=== PATIENT | female | born 1985 | race Caucasian/White ===

== ENCOUNTER 2016-12-29 13:15 | Emergency (ER) | payer SELFPAY ==
[~2016-12-29] VITALS: Ht 162.6 cm; Wt 60.0 kg
[~2016-12-29 13:15] MED LIST: ACET500T98 PO; ALBU18HF IH; ALBU18HF INHALATION; HYDR-3498 PO; NITR-58 PO; PRED15SO PO; UDROBDM PO
[2016-12-29 13:19] VITALS: Ht 162.6 cm; Wt 60.0 kg
[2016-12-29] MEDS ORDERED: IBUPROFEN 600 MG TAB PO ONE (14:00)
[2016-12-29] MEDS ORDERED: ACETAMINOPHEN 325 MG TAB PO ONE (14:00)
[2016-12-29] MEDS ORDERED: LIDOCAINE 1% (MDV) 20 ML INJ SC ONE (14:30)
[2016-12-29] MEDS ORDERED: HYDR-906 PO (14:34)
[2016-12-29] MEDS ORDERED: IBUP-1542 PO (14:34)
--- NOTE | 2016-12-29 14:46 | ERD ---
ER Documentation Chief Complaint Date/Time DATE: 12/29/16 TIME: 14:38 Chief Complaint lac to the right hand; injury today HPI This is a 31-year-old female who presents with a laceration to the third and fourth interdigital webspace of the right hand. Patient accidentally cut herself using a knife while she was preparing lunch 30 mins prior to ED visit. Patient denies any weakness, numbness, tingling sensation. Denies any fever. Medical history is unremarkable and patient had a history of cholecystectomy. Patient is unable to recall her last tetanus shot. ROS All systems reviewed and are negative except as per history of present illness. Medications Home Meds Active Scripts Hydrocodone/Acetaminophen ([place] 5-325 Tablet) 1 Each Tablet, 1 TAB PO Q6H Y for PAIN, #7 TAB Prov:CAROLE SANTACRUZ 12/29/16 Ibuprofen* (Motrin*) 600 Mg Tab, 600 MG PO Q6H Y for PAIN AND OR ELEVATED TEMP, #30 TAB Prov:CAROLE SANTACRUZ 12/29/16 Albuterol Sulfate* (Ventolin HFA*) 18 Gm Hfa.aer.ad, 2 PUFF INHALATION Q6H for WHEEZING, #1 INHALER 0 Refills Prov:ALIDA WILSON PA-C 09/17/15 Prednisolone* (Prelone*) 15 Mg/5 Ml Solution, 5 ML PO DAILY Y for WHEEZING, # 240 BOTTLE 0 Refills Prov:ALIDA WILSON PA-C 09/17/15 Guaifenesin-Dextromethorphan* (Robitussin* DM) 100MG/10MG/5ML Syrup, 10 ML PO Q6H Y for COUGH, #240 ML 0 Refills Prov:ALIDA WILSON PA-C 09/17/15 Acetaminophen (Tylenol) 500 Mg Tab, 500 MG PO Q6, #30 TAB 0 Refills Prov:ALIDA WILSON PA-C 09/17/15 Hydrocodone Bit-Acetaminophen* ([place]*) 5-325 Mg Tab, 1 TAB PO Q4H Y for PAIN, # 15 TAB Prov:PRABHA AUGUSTIN PA-C 09/09/15 Albuterol Sulfate* (Ventolin HFA*) 18 Gm Hfa.aer.ad, 2 PUFF IH Q4H Y for WHEEZING AND RESP DISTRESS, #1 EA Prov:PRABHA AUGUSTIN PA-C 09/09/15 Nitrofurantoin Monohyd Macrocr* (Macrobid*) 100 Mg Capsr, 100 MG PO BID for 7 Days, CAP Prov:PRABHA AUGUSTIN PA-C 09/09/15 Allergies Allergies: Coded Allergies: aspirin (Verified Allergy, Unknown, 09/09/15) PMhx/Soc Medical and Surgical Hx: pt denies Medical Hx, pt denies Surgical Hx Hx Alcohol Use: No Hx Substance Use: No Hx Tobacco Use: No Physical Exam Vitals Vital Signs Date Time Temp Pulse Resp B/P Pulse Ox O2 Delivery O2 Flow Rate FiO2 12/29/16 13:19 97.8 66 18 117/75 98 Physical Exam Physical Exam CONST: Well-developed, well-nourished, in no acute distress. Nontoxic in appearance. HEENT: Atraumatic. Normal conjunctiva. EOM intact. TM intact. External ear is normal. Clear oropharnyx without erythema. No uvular deviation. Moist mucous membranes. Supple neck. No meningismus. No submandibular induration. RESP: Clear to auscultation bilaterally. No wheezing. CARDIO: Regular rate and rhythm, no murmurs. ABD: Soft, non tender, non distended. Normal bowel sounds. No McBurney's point tenderness. No guarding or rigidity. No peritoneal signs. SKIN: Approximately 1.5 cm laceration between the third and fourth interdigital web space. Minimal oozing without any foreign body. BACK: No midline or flank tenderness. EXT: No cyanosis or edema. Distal pulses equal and bilateral. ROM when intact on all fingers. NEURO: Awake and alert, appropriate for age. Results 24 hrs Current Medications Medications (Trade) Dose Ordered Sig/Parmjit Route PRN Reason Start Time Stop Time Status Last Admin Dose Admin Acetaminophen (Tylenol Tab) 650 mg ONCE ONCE PO 12/29/16 14:00 12/29/16 14:00 DC Ibuprofen (Motrin) 600 mg ONCE ONCE PO 12/29/16 14:00 12/29/16 14:01 DC 12/29/16 14:00 Lidocaine (Xylocaine 1% (Mdv) 20 ml) 20 ml ONCE ONCE SC 12/29/16 14:30 12/29/16 14:31 DC Diphtheria/ Tetanus/Acell Pertussis (Adacel) 0.5 ml ONCE ONCE IM* 12/29/16 15:00 12/29/16 15:01 12/29/16 14:44 Procedures/MDM EMERGENCY DEPARTMENT COURSE/MEDICAL DECISION MAKING This is a 31-year-old female who comes to the emergency room secondary to laceration between the third and fourth interdigital webspace. Range of motion is intact without any neuro deficits. Ibuprofen and tetanus booster were given during the ED course. Laceration Repair by me: Anesthesia: 1% lidocaine locally Location: Third and fourth interdigital web space Tendon/Joint/Nerves: No injury Foreign body: None detected after copious irrigation and exploration Technique: 3 simple Interrupted Sutures Complexity: No subcutaneous sutures/mucosal repair/ edge excision Post Closure Length: Approximately 1.5 cm Patient's bleeding was easily controlled in the department and there is no indication of anemia. No evidence of compartment syndrome, neurologic injury, vascular injury, open joint, tendon laceration, or foreign body. Patient is appropriate for outpatient follow up. 48 hour wound check. Scar minimization instructions given. My primary diagnosis is laceration. Secondary diagnosis is right hand pain Differential diagnoses considered but not limited to fracture, tendon rupture, cellulitis, foreign body. Pt is hemodynamically stable upon reassessment. The patient was discharged for outpatient management with a prescription for [place] and ibuprofen. Patient was instructed to return to ED for a 48 hour wound check and in 7 days for suture removal. The patient was also advised to followup with their PMD in 1-2 days and to return to the Emergency Department if there are any new or worsening symptoms. The patient understood and agreed with the diagnosis, treatment and plan. Patient is stable for discharge at this time. Departure Diagnosis: Primary Impression: Laceration of hand, right Encounter type: initial encounter Foreign body presence: without foreign body Qualified Code: S61.411A - Laceration of right hand without foreign body , initial encounter Additional Impression: Hand pain, right Condition: Stable Patient Instructions: Laceration, Hand Referrals: COMMUNITY CLINICS YOU HAVE RECEIVED A MEDICAL SCREENING EXAM AND THE RESULTS INDICATE THAT YOU DO NOT HAVE A CONDITION THAT REQUIRES URGENT TREATMENT IN THE EMERGENCY DEPARTMENT. FURTHER EVALUATION AND TREATMENT OF YOUR CONDITION CAN WAIT UNTIL YOU ARE SEEN IN YOUR DOCTORS OFFICE WITHIN THE NEXT 1-2 DAYS. IT IS YOUR RESPONSIBILITY TO MAKE AN APPOINTMENT FOR FOLOW-UP CARE. IF YOU HAVE A PRIMARY DOCTOR --you should call your primary doctor and schedule an appointment IF YOU DO NOT HAVE A PRIMARY DOCTOR YOU CAN CALL OUR PHYSICIAN REFERRAL HOTLINE AT IF YOU CAN NOT AFFORD TO SEE A PHYSICIAN YOU CAN CHOSE FROM THE FOLLOWING [facility] [address] [facility] [address] [facility] [address] [facility] [address] [facility] [address] [facility]. [facility] [address] [facility]. [facility] YOU HAVE RECEIVED A MEDICAL SCREENING EXAM AND THE RESULTS INDICATE THAT YOU DO NOT HAVE A CONDITION THAT REQUIRES URGENT TREATMENT IN THE EMERGENCY DEPARTMENT. FURTHER EVALUATION AND TREATMENT OF YOUR CONDITION CAN WAIT UNTIL YOU ARE SEEN IN YOUR DOCTORS OFFICE WITHIN THE NEXT 1-2 DAYS. IT IS YOUR RESPONSIBILITY TO MAKE AN APPOINTMENT FOR FOLOW-UP CARE. IF YOU HAVE A PRIMARY DOCTOR --you should call your primary doctor and schedule and appointment IF YOU DO NOT HAVE A PRIMARY DOCTOR YOU CAN CALL OUR PHYSICIAN REFERRAL HOTLINE AT . IF YOU CAN NOT AFFORD TO SEE A PHYSICIAN YOU CAN CHOSE FROM THE FOLLOWING [facility] [address] [place] [address] [facility] [address] [place] [address] [facility] [address] [place] [address] Additional Instructions: Follow up in 2 days in your clinic for wound check. Follow up with your physician to remove the stitches:For Face wounds 5-7 days.For Elsewhere on the body 7-10 days. Call your primary care doctor tomorrow for an appointment during the next 1-2 days. Return to the emergency department immediately should you have any new or worsening symptoms. Take all medications as directed. CAROLE SANTACRUZ Dec 29, 2016 14:46
[2016-12-29] MEDS ORDERED: DIPHTH/TET/ACEL PERTUSS (ADULT) 0.5 ML VIAL IM* ONE (15:00)
== END 2016-12-29 15:22 | disposition home or self-care (01) ==
LOC: FTE 13:15
DX: S61.411A Laceration without foreign body of right hand, initial encounter (principal); W26.0XXA Contact with knife, initial encounter; Y92.9 Unspecified place or not applicable; Z23 Encounter for immunization
CPT/HCPCS: 90471; 90715

== ENCOUNTER 2016-12-31 12:19 | Emergency (ER) | payer SELFPAY ==
[~2016-12-31] VITALS: Wt 59.5 kg
[~2016-12-31 12:19] MED LIST changes: +HYDR-906 PO; +IBUP-1542 PO
--- NOTE | 2016-12-31 13:39 | ERD ---
ER Documentation Chief Complaint Date/Time DATE: 12/31/16 TIME: 13:38 Chief Complaint right hand wound check HPI Patient is a 31-year-old female with no medical problems who presents for a wound check. The patient had a laceration between the third and fourth fingers of the left hand from cutting avocados 2 days ago. The patient had 3 stitches placed in the emergency department. The patient had subjective fever but has had no redness. There is no pus from the wound. The patient tried Advil. There is no primary doctor at this time. She has full range of motion. ROS All systems reviewed and are negative except as per history of present illness. Medications Home Meds Active Scripts Hydrocodone/Acetaminophen ([place] 5-325 Tablet) 1 Each Tablet, 1 TAB PO Q6H Y for PAIN, #7 TAB Prov:CAROLE SANTACRUZ 12/29/16 Ibuprofen* (Motrin*) 600 Mg Tab, 600 MG PO Q6H Y for PAIN AND OR ELEVATED TEMP, #30 TAB Prov:CAROLE SANTACRUZ 12/29/16 Albuterol Sulfate* (Ventolin HFA*) 18 Gm Hfa.aer.ad, 2 PUFF INHALATION Q6H for WHEEZING, #1 INHALER 0 Refills Prov:ALIDA WILSON PA-C 09/17/15 Prednisolone* (Prelone*) 15 Mg/5 Ml Solution, 5 ML PO DAILY Y for WHEEZING, # 240 BOTTLE 0 Refills Prov:ALIDA WILSON PA-C 09/17/15 Guaifenesin-Dextromethorphan* (Robitussin* DM) 100MG/10MG/5ML Syrup, 10 ML PO Q6H Y for COUGH, #240 ML 0 Refills Prov:ALIDA WILSON PA-C 09/17/15 Acetaminophen (Tylenol) 500 Mg Tab, 500 MG PO Q6, #30 TAB 0 Refills Prov:ALIDA WILSON PA-C 09/17/15 Hydrocodone Bit-Acetaminophen* ([place]*) 5-325 Mg Tab, 1 TAB PO Q4H Y for PAIN, # 15 TAB Prov:PRABHA AUGUSTIN PA-C 09/09/15 Albuterol Sulfate* (Ventolin HFA*) 18 Gm Hfa.aer.ad, 2 PUFF IH Q4H Y for WHEEZING AND RESP DISTRESS, #1 EA Prov:PRABHA AUGUSTIN PA-C 09/09/15 Nitrofurantoin Monohyd Macrocr* (Macrobid*) 100 Mg Capsr, 100 MG PO BID for 7 Days, CAP Prov:PRABHA AUGUSTIN PA-C 09/09/15 Allergies Allergies: Coded Allergies: aspirin (Verified Allergy, Unknown, 09/09/15) PMhx/Soc Medical and Surgical Hx: pt denies Medical Hx Hx Alcohol Use: No Hx Substance Use: No Hx Tobacco Use: No FmHx Family History: diabetes Physical Exam Vitals Vital Signs Date Time Temp Pulse Resp B/P Pulse Ox O2 Delivery O2 Flow Rate FiO2 12/31/16 12:27 98.8 89 20 110/60 99 Physical Exam Const: No acute distress Head: Atraumatic Eyes: Normal Conjunctiva ENT: Normal External Ears, Nose and Mouth. Neck: Full range of motion..~ No meningismus. Resp: Clear to auscultation bilaterally Cardio: Regular rate and rhythm, no murmurs Abd: Soft, non tender, non distended. Normal bowel sounds Skin: Laceration between the left fourth and third finger of the left hand is clean, dry, and intact Back: No midline or flank tenderness Ext: No cyanosis, or edema Neur: Awake and alert Psych: Normal Mood and Affect Procedures/MDM Wound shows no evidence of infection, foreign body, neurologic injury, vascular injury, open joint or tendon laceration. Patient appropriate for outpatient follow up. Departure Diagnosis: Primary Impression: Suture check Condition: Fair Patient Instructions: Wound Check, Lac F/U (No Infection) Referrals: [facility] YOU HAVE RECEIVED A MEDICAL SCREENING EXAM AND THE RESULTS INDICATE THAT YOU DO NOT HAVE A CONDITION THAT REQUIRES URGENT TREATMENT IN THE EMERGENCY DEPARTMENT. FURTHER EVALUATION AND TREATMENT OF YOUR CONDITION CAN WAIT UNTIL YOU ARE SEEN IN YOUR DOCTORS OFFICE WITHIN THE NEXT 1-2 DAYS. IT IS YOUR RESPONSIBILITY TO MAKE AN APPOINTMENT FOR FOLOW-UP CARE. IF YOU HAVE A PRIMARY DOCTOR --you should call your primary doctor and schedule an appointment IF YOU DO NOT HAVE A PRIMARY DOCTOR YOU CAN CALL OUR PHYSICIAN REFERRAL HOTLINE AT IF YOU CAN NOT AFFORD TO SEE A PHYSICIAN YOU CAN CHOSE FROM THE FOLLOWING [facility] [address] [facility]. [facility] [address] [facility]. [facility] [address] [facility] [facility] [address] [facility]. [facility] [address] [facility]. [facility] [address] Additional Instructions: Call your primary care doctor TOMORROW for an appointment during the next 1 WEEK.Tell the pathology secretary that you were referred from this facility.See the doctor sooner or return here if your condition worsens before your appointment time. ALVIN BROWN MD Dec 31, 2016 13:39
== END 2016-12-31 13:50 | disposition home or self-care (01) ==
LOC: FTE 12:19
DX: Z48.01 Encounter for change or removal of surgical wound dressing (principal)
CPT/HCPCS: 99281

== ENCOUNTER 2017-02-16 20:50 | Inpatient (IN) | payer MEDICAID ==
[~2017-02-16] VITALS: Ht 160 cm; Wt 59.0 kg
[2017-02-16] MEDS ORDERED: SOD CHLORIDE 0.9% 1,000 ML IV STA (23:27)
[2017-02-16 23:50] LABS: ADD SCAN DIFF NO
[2017-02-16 23:53] LABS: BASOPHIL # 0.1 10^3/ul (0.0-0.1); BASOPHILS % 0.3 % (0.0-2.0); EOSINOPHILS # 0.7 10^3/ul (0.0-0.5); EOSINOPHILS % 4.8 % (0.0-7.0); HEMATOCRIT 39.2 % (37.0-47.0); HEMOGLOBIN 12.6 g/dl (12.0-16.0); LYMPHOCYTES % 13.7 % (15.0-51.0); MEAN CORPUSCULAR HEMOGLOBIN 28.3 pg (29.0-33.0); MEAN CORPUSCULAR HGB CONC 32.1 g/dl (32.0-37.0); MEAN CORPUSCULAR VOLUME 87.9 fl (82.0-101.0); MEAN PLATELET VOLUME 9.1 fl (7.4-10.4); MONOCYTE # 1.3 10^3/ul (0.3-0.9); MONOCYTES % 8.6 % (0.0-11.0); NEUTROPHIL # 10.6 10^3/ul (1.6-7.5); NEUTROPHILS % 72.3 % (39.0-77.0); PLATELET COUNT 334 10^3/UL (140-415); RED BLOOD COUNT 4.46 10^6/ul (4.20-5.40); RED CELL DISTRIBUTION WIDTH 13.8 % (11.5-14.5); WHITE BLOOD COUNT 14.7 10^3/ul (4.8-10.8)
[2017-02-17 00:09] LABS: INR 0.93; PROTIME 12.5 Sec (12.2-14.2)
[2017-02-17 00:10] LABS: PARTIAL THROMBOPLASTIN TIME 28.4 Sec (25.0-35.0)
[2017-02-17 00:12] LABS: ALBUMIN 4.2 g/dl (3.3-4.9); ALBUMIN/GLOBULIN RATIO 1.31; BILIRUBIN,INDIRECT 0.2 mg/dl (0-1.1); BILIRUBIN,TOTAL 0.2 mg/dl (0.2-1.3); CALCIUM 9.3 mg/dl (8.4-10.2); CREATININE 0.68 mg/dl (0.44-1.00); TOTAL PROTEIN 7.4 g/dl (6.1-8.1)
[2017-02-17 00:30] LABS: ADD UMIC YES; URINE BILIRUBIN (Dip) NEGATIVE (NEGATIVE); URINE BLOOD (Dip) 2+ (NEGATIVE); URINE COLOR LT. YELLOW (YELLOW); URINE GLUCOSE (Dip) NEGATIVE (NEGATIVE); URINE KETONES (Dip) TRACE (NEGATIVE); URINE LEUKOCYTE ESTERASE (Dip) 2+ (NEGATIVE); URINE NITRITE (Dip) NEGATIVE (NEGATIVE); URINE TOTAL PROTEIN (Dip) 1+ (NEGATIVE); URINE UROBILINOGEN (Dip) 0.2 E.U./dL (0.1-1.0)
[2017-02-17 00:48] LABS: BACTERIA,URINE MODERATE; SQUAMOUS EPITHELIAL CELL,UR MANY; URINE RBCS >50 /HPF (0)
[2017-02-17] MEDS ORDERED: morphine 2 MG INJ IV ONE (01:00)
[2017-02-17] MEDS ORDERED: PIPER-TAZO 3.375 GM IV (PMX) 100 ML IVPB ONE (01:30)
[2017-02-17] MEDS ORDERED: IBUPROFEN 600 MG TAB PO ONE (05:30)
[2017-02-17 06:09] VITALS: TEMP 99.6
[2017-02-17] MEDS ORDERED: NACL 0.9% 3 ML SYG IV SCH (07:30)
[2017-02-17] MEDS ORDERED: ONDANSETRON 4 MG INJ IV PRN (07:30)
[2017-02-17] MEDS ORDERED: VANCOMYCIN IV PER PHARMACY XX SCH (07:30)
[2017-02-17] MEDS ORDERED: morphine 4 MG/ML VIAL IV PRN ×2 (07:30→19:30)
[2017-02-17] MEDS ORDERED: ACETAMINOPHEN 325 MG TAB PO PRN (07:30)
--- NOTE | 2017-02-17 08:14 | HP ---
DATE OF ADMISSION: 02/16/2017 TIME SEEN: 6 a.m. CHIEF COMPLAINT: Right buttock infection and pain, as well as fever. HISTORY OF PRESENT ILLNESS: The patient is a 31-year-old female with a history of asthma who presen monty to the emergency department with the above-stated chief complaint. She stated that she was prob ably bitten by a spider 3 days ago on her right buttock and since then she had been noticing swellin g and pain. She also reported a subjective fever. When she presented to the ER her blood pressure was 133/79, heart rate 96, respiratory rate 18, temp erature 99.5, oxygen saturation 98% on room air. An I and D on her right eye buttock was done by e ER physician. She also received normal Zosyn and was given pain medications while she was in the ER. Currently she is awaiting admission. Currently the patient is also complaining of a diffuse he adache, for which she stated the morphine that she was given has effective. Note that the pat iemagda was recently diagnosed with a UTI and has been taking Macrobid and a urinalysis here in the ER is consistent with a UTI. REVIEW OF SYSTEMS: A 12-point review of systems was performed and negative except as mentioned in t he HPI. PAST MEDICAL HISTORY: As per HPI. PAST SURGICAL HISTORY: Cholecystectomy. SOCIAL HISTORY: Denied a history of tobacco, alcohol or illicit drug use. ALLERGIES: ASPIRIN. HOME MEDICATIONS: 1. Albuterol. 2. Ibuprofen. 3. Tylenol. 4. Robitussin. 5. Has been taking Macrobid for a recently diagnosed UTI. PHYSICAL EXAMINATION: VITAL SIGNS: Stable. GENERAL: The patient looks slightly uncomfortable because of pain. She is, however, answering ques tions appropriately. HEENT: No obvious head deformity. Pupils are reactive to light. Extraocular muscles are intact. CARDIOVASCULAR: Regular rate and rhythm. No extra sounds. LUNGS: Clear. ABDOMEN: Soft, nontender, nondistended. Positive bowel sounds. EXTREMITIES: No edema. There is a dressing over her right buttock area, status post incision and drainage. There is surrou nding cellulitis. The area is tender to touch. LABORATORY: WBC is almost 15,000. Otherwise CBC and CMP are within acceptable range. Urinalysis is consistent with a UTI. IMPRESSION: 1. Right buttock abscess, status post incision and drainage. 2. Sepsis, as evidenced by leukocytosis and tachycardia, secondary to above, as well as possibly fr om her urinary tract infection. 3. Urinary tract infection. 4. History of asthma. PLAN: She will be placed on broad-spectrum antibiotics which addresses both the infection on her bu ttock, as well as her UTI. Will follow up on culture results. Will provide pain medication as need ed. Will place an infectious disease consult. Will consider obtaining imaging. Currently, there i s no sign of asthma exacerbation, but she will receive breathing treatments and also if needed stero id, based on her clinical course. Further workup and management as per clinical course. Dictated By: KORIN CHÁVEZ/EVER Conf#: [id number] DID#: [id number]
[2017-02-17] MEDS: SOD CHLORIDE 0.9% 1,000 ML IV SCH ×2 (08:49→15:21)
[2017-02-17 09:21] VITALS: BP 102/57; PULSE 67; RESP 18; Ht 160 cm; Wt 59.0 kg
[2017-02-17] MEDS ORDERED: VANCOMYCIN 1.25 GM in SOD CHLORIDE 0.9% 250 ML IVPB SCH (10:00)
[2017-02-17] MEDS: CEFEPIME 1GM/50 ML (PMX) 50 ML IVPB SCH ×2 (10:04→21:26)
[2017-02-17] MEDS: LORATADINE 10 MG TAB PO SCH (15:24)
[2017-02-17] MEDS ORDERED: morphine 2 MG INJ IV PRN (17:00)
[2017-02-17] MEDS: VANCOMYCIN 1 GM in NS 250 ML IVPB SCH (17:31)
[2017-02-17] MEDS: FAMOTIDINE 20 MG TAB PO SCH (17:31)
[2017-02-17] MEDS: HYDROCODONE/APAP (5/325) TAB PO PRN (17:42)
--- NOTE | 2017-02-17 18:53 | PN ---
DATE: 02/17/2017 SUBJECTIVE: The patient still with some right buttock pain, but less in severity. Denies any prese nt fevers. OBJECTIVE: VITAL SIGNS: Stable. GENERAL: The patient is lying in bed, answering questions appropriately. No acute distress. HEENT: Pupils equal, round, react to light. Extraocular muscles intact. NECK: Supple. No thyromegaly. LUNGS: Clear to auscultation bilaterally. CARDIOVASCULAR: S1, S2 heard. No rubs or gallops. ABDOMEN: Soft, nontender, nondistended. Normal bowel sounds. No rebound or guarding. MUSCULOSKELETAL: Again, her right buttock area has a bandage covering with packing in place on the incisional area. Mild redness around the incision site, but no significant pus or blood leaking thr ough. Otherwise, no lower extremity edema bilaterally. NEUROLOGIC: No focal deficits. LABORATORY DATA: There is no new CBC or basic metabolic panel from this morning. UA shows 2+ leuko cyte esterase positive, moderate amount of bacteria. ASSESSMENT AND PLAN: A 31-year-old female coming in with right buttock infection and pain as well a s urinary tract infection and fever status post incision and drainage. 1. Right buttock pain secondary to right buttock abscess, again status post incision and drainage. Continue broad spectrum antibiotics. Follow up final culture results. Tylenol p.r.n. pain and fev ers, IV fluids, pain control medications. 2. Urinary tract infection. Again, follow up final culture results. Continue broad spectrum antib iotics. 3. History of asthma. Add DuoNeb p.r.n. No present issues. 4. Gastrointestinal prophylaxis. Add H2 leland. 5. Deep venous thrombosis prophylaxis. Ambulation. Dictated By: ELY DIAZ Conf#: [id number] DID#: [id number] CC: KORIN MYERS MD;*End*
[2017-02-17] MEDS: FLUTICASONE 0.05% 16 GM NAS SPRAY NASAL SCH ×2 (19:51→19:52)
[2017-02-17 20:42] VITALS: BP 113/66; RESP 16
[2017-02-18 00:29] VITALS: BP 98/57; PULSE 72; RESP 20
[2017-02-18] MEDS: SOD CHLORIDE 0.9% 1,000 ML IV SCH ×2 (01:03→07:21)
[2017-02-18] MEDS: VANCOMYCIN 1 GM in NS 250 ML IVPB SCH ×2 (01:05→11:30)
[2017-02-18 04:50] LABS: ADD SCAN DIFF NO
[2017-02-18 04:56] LABS: BASOPHIL # 0.1 10^3/ul (0.0-0.1); BASOPHILS % 0.5 % (0.0-2.0); EOSINOPHILS # 0.9 10^3/ul (0.0-0.5); EOSINOPHILS % 9.3 % (0.0-7.0); HEMATOCRIT 33.9 % (37.0-47.0); HEMOGLOBIN 10.7 g/dl (12.0-16.0); LYMPHOCYTES # 2.3 10^3/ul (0.8-2.9); LYMPHOCYTES % 23.2 % (15.0-51.0); MEAN CORPUSCULAR HEMOGLOBIN 27.6 pg (29.0-33.0); MEAN CORPUSCULAR HGB CONC 31.6 g/dl (32.0-37.0); MEAN CORPUSCULAR VOLUME 87.6 fl (82.0-101.0); MEAN PLATELET VOLUME 9.2 fl (7.4-10.4); MONOCYTE # 0.8 10^3/ul (0.3-0.9); MONOCYTES % 7.7 % (0.0-11.0); NEUTROPHIL # 5.9 10^3/ul (1.6-7.5); NEUTROPHILS % 59.1 % (39.0-77.0); PLATELET COUNT 302 10^3/UL (140-415); RED BLOOD COUNT 3.87 10^6/ul (4.20-5.40); RED CELL DISTRIBUTION WIDTH 13.8 % (11.5-14.5); WHITE BLOOD COUNT 9.9 10^3/ul (4.8-10.8)
[2017-02-18 05:47] LABS: ALBUMIN 2.8 g/dl (3.3-4.9); ALBUMIN/GLOBULIN RATIO 0.96; BILIRUBIN,INDIRECT 0.2 mg/dl (0-1.1); BILIRUBIN,TOTAL 0.2 mg/dl (0.2-1.3); CALCIUM 8.1 mg/dl (8.4-10.2); CREATININE 0.59 mg/dl (0.44-1.00); MAGNESIUM 1.9 mg/dl (1.7-2.5); PHOSPHORUS 3.5 mg/dl (2.5-4.9); POTASSIUM 3.6 mmol/L (3.5-5.1); TOTAL PROTEIN 5.7 g/dl (6.1-8.1)
[2017-02-18] MEDS: FAMOTIDINE 20 MG TAB PO SCH (08:21)
[2017-02-18] MEDS: CEFEPIME 1GM/50 ML (PMX) 50 ML IVPB SCH (08:21)
[2017-02-18] MEDS: FLUTICASONE 0.05% 16 GM NAS SPRAY NASAL SCH (08:22)
[2017-02-18] MEDS: LORATADINE 10 MG TAB PO SCH (08:22)
[2017-02-18] MEDS: HYDROCODONE/APAP (5/325) TAB PO PRN (08:31)
[2017-02-18 08:39] VITALS: BP 118/74; RESP 12
--- NOTE | 2017-02-18 14:01 | PDOCDIS ---
Discharge Instructions CONDITION Patient Condition: Stable HOME CARE INSTRUCTIONS: Diet Instructions: Regular ACTIVITY: Activity Restrictions: Slowly Increase Activity FOLLOW UP/APPOINTMENTS Appointments Please see your doctor in the clinic in 1 week, and take your medications as prescribed. ELY STAHL February 18, 2017 14:01
[2017-02-18] MEDS ORDERED: FLUT16SP17 NASAL (14:03)
[2017-02-18] MEDS ORDERED: CEPH500C PO (14:03)
[2017-02-18] MEDS ORDERED: VANCOMYCIN 1.25 GM in SOD CHLORIDE 0.9% 250 ML IVPB SCH (18:00)
--- NOTE | 2017-02-18 19:00 | DS ---
DATE OF ADMISSION: 02/17/2017 DATE OF DISCHARGE: 02/18/2017 A 31-year-old female originally admitted on 02/17/2017, being discharged home on 02/18/2017. HOSPITAL COURSE: The patient came in with right buttock pain. She was found with an infection. Th ere was an abscess actually, that she had incision and drainage procedure performed. The wound was p acked. She was placed on antibiotics as well. Over the course of her hospital stay, her right butt ock pain symptoms improved. She had less redness and swelling. Her leukocytosis resolved. She had no fevers. She was given pain control medications as well and after getting dressing changes and p acking changes, given her improved lab results and vital signs she will be discharged home today in improved condition. The patient was also treated for UTI as well. DISCHARGE MEDICATIONS: She will be sent with: 1. Keflex 500 mg p.o. q. 6 hours for 7 days. 2. Flonase nasal spray b.i.d. 3. She will continue Tylenol 500 mg p.o. q 6 hours. 4. Ventolin 2 puffs inhaled q.4h. p.r.n. 5. Guaifenesin q.6h. p.r.n. 6. [place] 5/325 one tab p.o. q.6h. p.r.n. 7. Prednisolone 5 mL p.o. daily p.r.n. wheezing. She will need follow up with primary care doctor in the clinic in the next 1 to 2 weeks. FINAL DIAGNOSES: 1. Right buttock abscess status post incision and drainage, possibly secondary to a spider bite, un clear, with mild cellulitis now improved after incision and drainage. 2. Urinary tract infection, positive for lactobacillus, now on antibiotics. 3. History of asthma. Time spent with patient 35 minutes. Dictated By: ELY DIAZ Conf#: [id number] DID#: [id number]
[2017-02-19] MEDS ORDERED: SULF1TAB31 PO (11:09)
== END 2017-02-18 15:30 | disposition home or self-care (01) | DRG 872 ==
LOC: E/R 20:50 → MS1 02-17 08:19
PROVIDERS: ADMIT Internal Medicine; ATTEND Internal Medicine
DX: A41.9 Sepsis, unspecified organism (principal); N39.0 Urinary tract infection, site not specified; L02.31 Cutaneous abscess of buttock; L03.317 Cellulitis of buttock; Z87.09 Personal history of other diseases of the respiratory system
CPT/HCPCS: 80053; 80202; 81001; 81003; 83690; 83735; 84100; 85025; 85610; 85730; 87040; 87086; J0692; J2270; J2543; J3370; J7030; J7050

== ENCOUNTER 2017-02-19 09:51 | Emergency (ER) | payer MEDICAID ==
[~2017-02-19] VITALS: Ht 160 cm; Wt 60.0 kg
[~2017-02-19 09:51] MED LIST changes: +CEPH500C PO; +FLUT16SP17 NASAL; -NITR-58 PO
[2017-02-19 09:56] VITALS: Ht 160 cm; Wt 60.0 kg
[2017-02-19] MEDS ORDERED: SULF1TAB31 PO (11:09)
--- NOTE | 2017-02-19 12:38 | ERD ---
ER Documentation Chief Complaint Date/Time DATE: 02/19/17 TIME: 12:31 Chief Complaint wound check HPI This is a 31-year-old female presenting to the emergency department with abscess and cellulitis of her right buttock for 5 days. Patient has been evaluated at this facility on Friday, received an incision and drainage and was admitted for broad-spectrum IV antibiotics for two days and released yesterday. Patient was discharged with Keflex and she just started the medication within the past day. Patient states that the abscess and cellulitis has improved significantly however today she has noted a lot of purulence. Patient states the pain is 7 out of 10 but appropriate for her condition and has not worsened pain. She denies any fevers. She states that she is compliant with her medication. ROS All systems reviewed and are negative except as per history of present illness. Medications Home Meds Active Scripts Sulfamethoxazole/Trimethoprim* (Bactrim Ds* Tablet) 1 Each Tablet, 1 TAB PO BID , #10 TAB Prov:ROCK MCFARLANE PA-C 02/19/17 Cephalexin* (Cephalexin*) 500 Mg Capsule, 500 MG PO Q6 for 7 Days, #28 CAP Prov:ELY STAHL S. 02/18/17 Fluticasone Propionate* (Fluticasone Propionate* Nasal) 50 Mcg/West - 16 Gm [place].susp, 1 SPRAY NASAL BID, #60 2 Refills Prov:ELY STAHL S. 02/18/17 Hydrocodone/Acetaminophen ([place] 5-325 Tablet) 1 Each Tablet, 1 TAB PO Q6H Y for PAIN, #7 TAB Prov:CAROLE SANTACRUZ 12/29/16 Ibuprofen* (Motrin*) 600 Mg Tab, 600 MG PO Q6H Y for PAIN AND OR ELEVATED TEMP, #30 TAB Prov:CAROLE SANTACRUZ 12/29/16 Albuterol Sulfate* (Ventolin HFA*) 18 Gm Hfa.aer.ad, 2 PUFF INHALATION Q6H for WHEEZING, #1 INHALER 0 Refills Prov:ALIDA WILSON PA-C 09/17/15 Prednisolone* (Prelone*) 15 Mg/5 Ml Solution, 5 ML PO DAILY Y for WHEEZING, # 240 BOTTLE 0 Refills Prov:ALIDA WILSON PA-C 09/17/15 Guaifenesin-Dextromethorphan* (Robitussin* DM) 100MG/10MG/5ML Syrup, 10 ML PO Q6H Y for COUGH, #240 ML 0 Refills Prov:ALIDA WILSON PA-C 09/17/15 Acetaminophen (Tylenol) 500 Mg Tab, 500 MG PO Q6, #30 TAB 0 Refills Prov:ALIDA WILSON PA-C 09/17/15 Hydrocodone Bit-Acetaminophen* ([place]*) 5-325 Mg Tab, 1 TAB PO Q4H Y for PAIN, # 15 TAB Prov:PRABHA AUGUSTIN PA-C 09/09/15 Albuterol Sulfate* (Ventolin HFA*) 18 Gm Hfa.aer.ad, 2 PUFF IH Q4H Y for WHEEZING AND RESP DISTRESS, #1 EA Prov:PRABHA AUGUSTIN PA-C 09/09/15 Discontinued Scripts Nitrofurantoin Monohyd Macrocr* (Macrobid*) 100 Mg Capsr, 100 MG PO BID for 7 Days, CAP Prov:PRABHA AUGUSTIN PA-C 09/09/15 Allergies Allergies: Coded Allergies: aspirin (Verified Allergy, Unknown, 09/09/15) PMhx/Soc History of Surgery: Yes ( x1) Anesthesia Reaction: No Hx Neurological Disorder: No Hx Respiratory Disorders: Yes (asthma) Hx Cardiac Disorders: No Hx Psychiatric Problems: No Hx Miscellaneous Medical Probl: No Hx Alcohol Use: No Hx Substance Use: No Hx Tobacco Use: No Physical Exam Vitals Vital Signs Date Time Temp Pulse Resp B/P Pulse Ox O2 Delivery O2 Flow Rate FiO2 02/19/17 09:56 98.4 77 18 124/82 99 Physical Exam General: WD/WN, in no apparent distress, non-toxic appearing HENT: NC/AT Eyes: Conjunctiva normal Neck: Supple Pulm: Clear to auscultation, normal labored breathing; no wheezing/rales/ rhonchi heard CV: Good capillary refill GI: Non-distended, no guarding Back: No masses Ext: No clubbing, cyanosis, or edema Neuro: Moves on all fours Skin: 2cm diameter incision with purulence and surrounding patch of erythema, warmth Psych: Normal mood Procedures/MDM This is a 31-year-old female presenting to the emergency department with abscess and cellulitis of her right buttock who was recently admitted 3 days ago for broad-spectrum IV antibiotics and released yesterday. Patient had an incision and drainage of the abscess on Friday.She was discharged with Keflex. Patient states that the abscess and cellulitis has improved significantly however today she has noted a lot of purulence. There was no evidence of lymphangitis, osteomyelitis, bacteremia. Patient appears well with stable vital signs. In the ED, I have irrigated the incision sites with copious amount of normal saline to flush out the purulence. I have packed it with iodoform and using sterile gauze and Tegaderm. Patient is stable for discharge to follow-up in 2 days at this facility for another wound check. Discussed to continue Keflex as directed by other physician, I have added Bactrim DS to cover for possible MRSA. Stable for discharge for home with precautions to return to the emergency department for any worsening sinus symptoms. She understands and agrees with this plan Departure Diagnosis: Primary Impression: Encounter for wound re-check Additional Impression: Abscess of cellulitis of buttock Condition: Stable Patient Instructions: Abscess Drainage, Wound Packing Additional Instructions: Follow up in 2 days in your clinic for wound check. Return to this facility if you are not improving as expected. Take all medicines as directed. ROCK MCFARLANE PA-C February 19, 2017 12:38
== END 2017-02-19 11:36 | disposition home or self-care (01) ==
LOC: FTE 09:51
DX: Z48.01 Encounter for change or removal of surgical wound dressing (principal); L02.31 Cutaneous abscess of buttock; L03.317 Cellulitis of buttock; J45.909 Unspecified asthma, uncomplicated
CPT/HCPCS: 99283

== ENCOUNTER 2017-02-21 14:18 | Emergency (ER) | payer MEDICAID ==
[~2017-02-21] VITALS: Wt 59.0 kg
[~2017-02-21 14:18] MED LIST changes: +SULF1TAB31 PO
--- NOTE | 2017-02-21 14:49 | ERD ---
ER Documentation Chief Complaint Date/Time DATE: 02/21/17 TIME: 14:48 Chief Complaint WOUND CHECK ON ABCESS I&D HPI 31 yo female comes to the ER for a right buttock abscess incision and drainage wound check from about 5 days ago. The wound was rechecked and repacked 2 days ago. She states that the pain is getting better. No fever, nausea or vomiting. ROS All systems reviewed and are negative except as per history of present illness. Medications Home Meds Active Scripts Sulfamethoxazole/Trimethoprim* (Bactrim Ds* Tablet) 1 Each Tablet, 1 TAB PO BID , #10 TAB Prov:ROCK MCFARLANE PA-C 02/19/17 Cephalexin* (Cephalexin*) 500 Mg Capsule, 500 MG PO Q6 for 7 Days, #28 CAP Prov:ELY STAHL S. 02/18/17 Fluticasone Propionate* (Fluticasone Propionate* Nasal) 50 Mcg/[place] - 16 Gm [place].susp, 1 SPRAY NASAL BID, #60 2 Refills Prov:ELY STAHL S. 02/18/17 Hydrocodone/Acetaminophen ([place] 5-325 Tablet) 1 Each Tablet, 1 TAB PO Q6H Y for PAIN, #7 TAB Prov:CAROLE SANTACRUZ 12/29/16 Ibuprofen* (Motrin*) 600 Mg Tab, 600 MG PO Q6H Y for PAIN AND OR ELEVATED TEMP, #30 TAB Prov:CAROLE SANTACRUZ 12/29/16 Albuterol Sulfate* (Ventolin HFA*) 18 Gm Hfa.aer.ad, 2 PUFF INHALATION Q6H for WHEEZING, #1 INHALER 0 Refills Prov:ALIDA WILSON PA-C 09/17/15 Prednisolone* (Prelone*) 15 Mg/5 Ml Solution, 5 ML PO DAILY Y for WHEEZING, # 240 BOTTLE 0 Refills Prov:ALIDA WILSON PA-C 09/17/15 Guaifenesin-Dextromethorphan* (Robitussin* DM) 100MG/10MG/5ML Syrup, 10 ML PO Q6H Y for COUGH, #240 ML 0 Refills Prov:ALIDA WILSON PA-C 09/17/15 Acetaminophen (Tylenol) 500 Mg Tab, 500 MG PO Q6, #30 TAB 0 Refills Prov:ALIDA WILSON PA-C 09/17/15 Hydrocodone Bit-Acetaminophen* ([place]*) 5-325 Mg Tab, 1 TAB PO Q4H Y for PAIN, # 15 TAB Prov:PRABHA AUGUSTIN PA-C 09/09/15 Albuterol Sulfate* (Ventolin HFA*) 18 Gm Hfa.aer.ad, 2 PUFF IH Q4H Y for WHEEZING AND RESP DISTRESS, #1 EA Prov:PRABHA AUGUSTIN PA-C 09/09/15 Discontinued Scripts Nitrofurantoin Monohyd Macrocr* (Macrobid*) 100 Mg Capsr, 100 MG PO BID for 7 Days, CAP Prov:PARBHA AUGUSTIN PA-C 09/09/15 Allergies Allergies: Coded Allergies: aspirin (Verified Allergy, Unknown, 09/09/15) PMhx/Soc History of Surgery: Yes ( x1) Anesthesia Reaction: No Hx Neurological Disorder: No Hx Respiratory Disorders: Yes (asthma) Hx Cardiac Disorders: No Hx Psychiatric Problems: No Hx Miscellaneous Medical Probl: No Hx Alcohol Use: No Hx Substance Use: No Hx Tobacco Use: No Smoking Status: Never smoker Physical Exam Vitals Vital Signs Date Time Temp Pulse Resp B/P Pulse Ox O2 Delivery O2 Flow Rate FiO2 02/21/17 14:22 99.0 68 17 121/64 100 Physical Exam General: Well-developed, well-nourished. The patient appears in no acute distress. HEENT: Head is normocephalic, atraumatic. No scleral icterus. Neck: Supple. Nontender. Lungs: Clear to auscultation. Normal air movement. Heart: Regular rate and rhythm. S1 and S2 are normal. No murmurs, gallops, or rubs. Abdomen: Nondistended. Extremities: No clubbing or cyanosis. Moving extremities x 4. No weakness. Neurologic: Alert and oriented 3. No focal deficits. Normal speech and gait. Skin: 1 cm incision in the right mid buttock, areas clean dry and intact, there is surrounding mild induration only. Wound is approximately 1 cm deep. There is continuing purulent drainage that is seen for Procedures/MDM 31-year-old female comes in for wound check for an abscess incision and drainage from about 5 days ago. Wound shows no evidence of infection, foreign body, neurologic injury, vascular injury, open joint or tendon laceration. Patient appropriate for outpatient follow up. Departure Diagnosis: Primary Impression: Encounter for wound re-check Additional Impression: Abscess of cellulitis of buttock Condition: Good Patient Instructions: Wound Care RUDDY KIMBALL PA-C February 21, 2017 14:49
[2017-02-21 16:35] VITALS: BP 118/60; PULSE 64; RESP 16; TEMP 98.4
== END 2017-02-21 16:37 | disposition home or self-care (01) ==
LOC: FTE 14:18
DX: Z48.01 Encounter for change or removal of surgical wound dressing (principal); L02.31 Cutaneous abscess of buttock; L03.317 Cellulitis of buttock; J45.909 Unspecified asthma, uncomplicated
CPT/HCPCS: 99281

== ENCOUNTER 2017-05-16 15:15 | Emergency (ER) | payer SELFPAY ==
[~2017-05-16] VITALS: Ht 162.6 cm; Wt 61.0 kg
[2017-05-16 15:16] VITALS: Ht 162.6 cm; Wt 61.0 kg
[2017-05-16] MEDS ORDERED: ACET325T33 PO (15:34)
[2017-05-16] MEDS ORDERED: LORA-186 PO (15:34)
[2017-05-16] MEDS ORDERED: AMO500 PO (15:34)
--- NOTE | 2017-05-16 16:34 | ERD ---
ER Documentation Chief Complaint Date/Time DATE: 05/16/17 TIME: 16:33 Chief Complaint THROAT PAIN X1 WEEK, FEVER AT HOME, NO N/V HPI 32-year-old female presents to the emergency department complaining of a sore throat for the past week, she states it is constant increased with swallowing. She states that she has had a fever in the past week but denies any fever today. She admits to having a mild cough. She denies any nausea vomiting. ROS All systems reviewed and are negative except as per history of present illness. Medications Home Meds Active Scripts Acetaminophen* (Tylenol*) 325 Mg Tablet, 2 TAB PO Q4 Y for PAIN AND OR ELEVATED TEMP, #20 TAB Prov:ROCK MCFARLANE PA-C 05/16/17 Loratadine* (Claritin*) 10 Mg Tablet, 10 MG PO DAILY, #20 TAB Prov:ROCK MCFARLANE PA-C 05/16/17 Amoxicillin* (Amoxicillin*) 500 Mg Cap, 500 MG PO BID for 10 Days, CAP Prov:ROCK MFCARLANE PA-C 05/16/17 Sulfamethoxazole/Trimethoprim* (Bactrim Ds* Tablet) 1 Each Tablet, 1 TAB PO BID , #10 TAB Prov:ROCK MCFARLANE PA-C 02/19/17 Cephalexin* (Cephalexin*) 500 Mg Capsule, 500 MG PO Q6 for 7 Days, #28 CAP Prov:ELY STAHL S. 02/18/17 Fluticasone Propionate* (Fluticasone Propionate* Nasal) 50 Mcg/[place] - 16 Gm [place].susp, 1 SPRAY NASAL BID, #60 2 Refills Prov:ELY STAHL S. 02/18/17 Hydrocodone/Acetaminophen ([place] 5-325 Tablet) 1 Each Tablet, 1 TAB PO Q6H Y for PAIN, #7 TAB Prov:CAROLE SANTACRUZ 12/29/16 Ibuprofen* (Motrin*) 600 Mg Tab, 600 MG PO Q6H Y for PAIN AND OR ELEVATED TEMP, #30 TAB Prov:CAROLE SANTACRUZ 12/29/16 Albuterol Sulfate* (Ventolin HFA*) 18 Gm Hfa.aer.ad, 2 PUFF INHALATION Q6H for WHEEZING, #1 INHALER 0 Refills Prov:ALIDA WILSON PA-C 09/17/15 Prednisolone* (Prelone*) 15 Mg/5 Ml Solution, 5 ML PO DAILY Y for WHEEZING, # 240 BOTTLE 0 Refills Prov:ALIDA WILSON PA-C 09/17/15 Guaifenesin-Dextromethorphan* (Robitussin* DM) 100MG/10MG/5ML Syrup, 10 ML PO Q6H Y for COUGH, #240 ML 0 Refills Prov:ALIDA WILSON PA-C 09/17/15 Acetaminophen (Tylenol) 500 Mg Tab, 500 MG PO Q6, #30 TAB 0 Refills Prov:ALIDA WILSON PA-C 09/17/15 Hydrocodone Bit-Acetaminophen* ([place]*) 5-325 Mg Tab, 1 TAB PO Q4H Y for PAIN, # 15 TAB Prov:PRABHA AUGUSTIN PA-C 09/09/15 Albuterol Sulfate* (Ventolin HFA*) 18 Gm Hfa.aer.ad, 2 PUFF IH Q4H Y for WHEEZING AND RESP DISTRESS, #1 EA Prov:PRABHA AUGUSTIN PA-C 09/09/15 Allergies Allergies: Coded Allergies: aspirin (Verified Allergy, Unknown, 09/09/15) PMhx/Soc History of Surgery: No Anesthesia Reaction: No Hx Neurological Disorder: No Hx Respiratory Disorders: No Hx Cardiac Disorders: No Hx Psychiatric Problems: No Hx Miscellaneous Medical Probl: No Hx Alcohol Use: No Hx Substance Use: No Hx Tobacco Use: No Smoking Status: Never smoker Physical Exam Vitals Vital Signs Date Time Temp Pulse Resp B/P Pulse Ox O2 Delivery O2 Flow Rate FiO2 05/16/17 15:16 98.6 85 18 127/71 97 Physical Exam Const: Well-developed well-nourished no acute distress Head: Atraumatic Eyes: Normal Conjunctiva ENT: Normal External Ears, Nose and Mouth. Neck: Full range of motion..~ No meningismus. Resp: Clear to auscultation bilaterally Cardio: Regular rate and rhythm, no murmurs Abd: Soft, non tender, non distended. Normal bowel sounds Skin: No petechiae or rashes Back: No midline or flank tenderness Ext: No cyanosis, or edema Neur: Awake and alert Psych: Normal Mood and Affect Procedures/MDM This is a 32-year-old male presenting to the emergency department complaining of a sore throat and congestion for the past week which is likely due to a viral upper respiratory infection. Patient did not have any evidence of strep pharyngitis, otitis media, pneumonia. No evidence of peritonsillar or retropharyngeal abscess. Patient was requesting antibiotics from I have given her the risks of antibiotics. Discussed return the ER for worsening symptoms patient understands and agrees with plan Departure Diagnosis: Primary Impression: URI (upper respiratory infection) Condition: Stable Patient Instructions: Preventing Common Respiratory Infections, Uri, Viral, No Abx (Adult) Additional Instructions: FOLLOW UP WITH YOUR PRIMARY CARE PHYSICIAN TOMORROW.Return to this facility if you are not improving as expected. Take all medicines as directed. Return to this facility if you are not improving as expected. ROCK MCFARLANE PA-C May 16, 2017 16:34
== END 2017-05-16 16:01 | disposition home or self-care (01) ==
LOC: FTE 15:15
DX: J06.9 Acute upper respiratory infection, unspecified (principal)
CPT/HCPCS: 99283

== ENCOUNTER 2017-09-11 18:12 | Emergency (ER) | payer SELFPAY ==
[~2017-09-11] VITALS: Ht 162.6 cm; Wt 62.8 kg
[~2017-09-11 18:12] MED LIST changes: +ACET325T33 PO; +AMOX500C2 PO; +LORA-186 PO
[2017-09-11 18:24] VITALS: Ht 162.6 cm; Wt 62.8 kg
[2017-09-11] MEDS ORDERED: LEVALBUTEROL (NEB) 1.25 MG/0.5 ML AMP INH STA (18:46)
[2017-09-11] MEDS ORDERED: IPRATROPIUM (NEB) 0.5 MG/2.5 ML AMP NEB STA (18:46)
[2017-09-11] MEDS ORDERED: IBUPROFEN 800 MG TAB PO ONE (19:00)
--- NOTE | 2017-09-11 19:21 | RADRPT ---
PROCEDURE: Chest x-ray CLINICAL INDICATION: Asthma exacerbation TECHNIQUE: Chest single view COMPARISON: 09/17/2015 FINDINGS: The heart is normal in size. The pulmonary vessels are normal in caliber. The lungs are clear. Th e costophrenic angles are sharp. The visualized bony thorax is unremarkable. IMPRESSION: No acute cardiopulmonary disease. RPTAT: HH .Scot Mendez MD, Date Time Electronically viewed and signed by .Scot Mendez MD, on 09/11/2017 19:21 .W/
[2017-09-11] MEDS ORDERED: predniSONE 20 MG TAB PO ONE (19:30)
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
[2017-09-11] MEDS ORDERED: IBUP-1542 PO (19:42)
[2017-09-11] MEDS ORDERED: AZIT250T94 PO (19:42)
[2017-09-11] MEDS ORDERED: CETI10CA PO (19:43)
[2017-09-11] MEDS ORDERED: FLUT9.9S NASAL (19:44)
[2017-09-11] MEDS ORDERED: PRED20TA PO (19:44)
[2017-09-11 20:01] VITALS: BP 120/72; PULSE 98; RESP 20; TEMP 99
== END 2017-09-11 20:03 | disposition home or self-care (01) ==
LOC: FTE 18:12
DX: J45.901 Unspecified asthma with (acute) exacerbation (principal); J06.9 Acute upper respiratory infection, unspecified
CPT/HCPCS: 71010; 94664; 99284; J7512

== ENCOUNTER 2018-01-11 11:33 | Emergency (ER) | END 2018-01-11 11:55 | disposition home or self-care (01) ==

== ENCOUNTER 2018-05-12 02:33 | Emergency (ER) | END 2018-05-12 05:05 | disposition home or self-care (01) ==

== ENCOUNTER 2018-06-15 20:39 | Emergency (ER) | END 2018-06-15 20:57 | disposition left against medical advice (07) ==

== ENCOUNTER 2018-10-09 14:11 | Emergency (ER) | payer MEDICAID ==
[~2018-10-09] VITALS: Wt 64.7 kg
[~2018-10-09 14:11] MED LIST changes: +AZIT250T PO; +CETI10CA PO; +DOCU-144 PO; +FLUT9.9S NASAL; +GUAI5SYR2 PO; +HYDR-4011 PO; -HYDR-906 PO; -PRED15SO PO; +PRED20TA PO; +PREL60L PO; -UDROBDM PO
[2018-10-09] MEDS ORDERED: SOD CHLORIDE 0.9% 500 ML IV ONE (16:00)
[2018-10-09] MEDS ORDERED: ONDA4TAB14 PO (17:38)
[2018-10-09 17:44] VITALS: BP 106/59; PULSE 59; RESP 18
--- NOTE | 2018-10-09 18:22 | ERD ---
ER Documentation Chief Complaint Chief Complaint INSOMNIA X 1 WEEK HPI 33-year-old female patient with past medical history of asthma presents to ED complaining of inability to sleep, urgency to urinate, feels like her blood sugar is low for the past week. States that she has been more stressed than usual. Denies any fever, chills, nausea, vomiting, diarrhea, neck stiffness. ROS All systems reviewed and are negative except as per history of present illness. Medications Home Meds Active Scripts Ondansetron (Ondansetron Odt) 4 Mg Tab.rapdis, 4 MG PO Q6H PRN for NAUSEA AND/OR VOMITING, #10 TAB Prov:MAYA FLORES PA-C 10/09/18 Docusate Sodium* (Colace*) 100 Mg Capsule, 100 MG PO TID, #30 CAP Prov:KORIN GARCIA 05/12/18 Acetaminophen* (Tylenol*) 325 Mg Tablet, 2 TAB PO Q4 PRN for PAIN AND OR ELEVATED TEMP, #30 TAB Prov:ROCK MCFARLANE PA-C 01/11/18 Amoxicillin* (Amoxicillin*) 500 Mg Cap, 500 MG PO BID for 10 Days, CAP Prov:ROCK MCFARLANE PA-C 01/11/18 Prednisone* (Prednisone*) 20 Mg Tab, 40 MG PO DAILY for 4 Days, TAB Prov:ROSSY HOFF PA-C 09/11/17 Fluticasone Propionate (Flonase Allergy Relief) 9.9 Ml [place].susp, 2 SPRAY NASAL DAILY, #1 BOTTLE TO EACH NOSTRIL Prov:ROSSY HOFF PA-C 09/11/17 Cetirizine Hcl* (Zyrtec*) 10 Mg Capsule, 10 MG PO DAILY, #14 TAB.CHEW Prov:ROSSY HOFF PA-C 09/11/17 Ibuprofen* (Motrin*) 600 Mg Tab, 600 MG PO Q6, #30 TAB Prov:ROSSY HOFF PA-C 09/11/17 Azithromycin* (Zithromax*) 250 Mg Tablet, 250 MG PO .LoreePACK DIRECTED, #6 TAB TAKE 500 MG (2 TABS) THE FIRST DAY THEN 250 MG (1 TAB) DAYS 2-5 Prov:ROSSY HOFF PA-C 09/11/17 Acetaminophen* (Tylenol*) 325 Mg Tablet, 2 TAB PO Q4 PRN for PAIN AND OR ELEVATED TEMP, #20 TAB Prov:ROCK MCFARLANE PA-C 05/16/17 Loratadine* (Claritin*) 10 Mg Tablet, 10 MG PO DAILY, #20 TAB Prov:ROCK MCFARLANE PA-C 05/16/17 Amoxicillin* (Amoxicillin*) 500 Mg Cap, 500 MG PO BID for 10 Days, CAP Prov:ROCK MCFARLANE PA-C 05/16/17 Sulfamethoxazole/Trimethoprim* (Bactrim Ds* Tablet) 1 Each Tablet, 1 TAB PO BID, #10 TAB Prov:ROCK MCFARLANE PA-C 02/19/17 Cephalexin* (Cephalexin*) 500 Mg Capsule, 500 MG PO Q6 for 7 Days, #28 CAP Prov:SUMIT STAHLP S. 02/18/17 Fluticasone Propionate* (Fluticasone Propionate* Nasal) 50 Mcg/[place] - 16 Gm [place].susp, 1 SPRAY NASAL BID, #60 2 Refills Prov:ELY STAHL S. 02/18/17 Hydrocodone/Acetaminophen ([place] 5-325 Tablet) 1 Each Tablet, 1 TAB PO Q6H PRN for PAIN, #7 TAB Prov:CAROLE SANTACRUZ 12/29/16 Ibuprofen* (Motrin*) 600 Mg Tab, 600 MG PO Q6H PRN for PAIN AND OR ELEVATED TEMP, #30 TAB Prov:CAROLE SANTACRUZ 12/29/16 Albuterol Sulfate* (Ventolin HFA*) 18 Gm Hfa.aer.ad, 2 PUFF INHALATION Q6H for WHEEZING, #1 INHALER 0 Refills Prov:ALIDA WILSON PA-C 09/17/15 Prednisolone* (Prelone*) 15 Mg/5 Ml Solution, 5 ML PO DAILY PRN for WHEEZING, #240 BOTTLE 0 Refills Prov:ALIDA WILSON PA-C 09/17/15 Guaifenesin-Dextromethorphan* (Robitussin* DM) 100MG/10MG/5ML Syrup, 10 ML PO Q6H PRN for COUGH, #240 ML 0 Refills Prov:ALIDA WILSON PA-C 09/17/15 Acetaminophen (Tylenol) 500 Mg Tab, 500 MG PO Q6, #30 TAB 0 Refills Prov:ALIDA WILSON PA-C 09/17/15 Hydrocodone Bit-Acetaminophen* ([place]*) 5-325 Mg Tab, 1 TAB PO Q4H PRN for PAIN, #15 TAB Prov:PRABHA AUGUSTIN PA-C 09/09/15 Albuterol Sulfate* (Ventolin HFA*) 18 Gm Hfa.aer.ad, 2 PUFF IH Q4H PRN for WHEEZING AND RESP DISTRESS, #1 EA Prov:PRABHA AUGUSTIN PA-C 09/09/15 Allergies Allergies: Coded Allergies: aspirin (Verified Allergy, Unknown, 09/09/15) PMhx/Soc History of Surgery: Yes (,GALL BLADDER REMOVAL ) Anesthesia Reaction: No Hx Neurological Disorder: No Hx Respiratory Disorders: Yes (ASTHMA) Hx Cardiac Disorders: No Hx Psychiatric Problems: No Hx Miscellaneous Medical Probl: No Hx Alcohol Use: No Hx Substance Use: No Hx Tobacco Use: No Smoking Status: Never smoker FmHx Family History: No diabetes, No coronary disease Physical Exam Vitals Vital Signs Date Temp Pulse Resp B/P (MAP) Pulse Ox O2 O2 Flow FiO2 Time Delivery Rate 10/09/18 59 18 106/59 98 Room Air 17:44 (75) 10/09/18 98.1 78 18 142/94 99 14:14 (110) Physical Exam Const: [id number], well-nourished. In no acute distress. Head: Atraumatic, normocephalic Eyes: Normal Conjunctiva without injection. No purulent discharge. PERRL. EOMI ENT: Normal external ear. Ear canal without erythema. Tympanic membrane pearly wright without effusion or bulging. Nasal canal clear with normal turbinates. Moist oropharynx without tonsillar exudates. Non-erythematous pharynx. Uvula midline. No drooling. No trismus. Neck: Full range of motion. No meningismus. No cervical lymphadenopathy. Resp: Clear to auscultation bilaterally. No wheezing, rhonchi, rales, or crackles. No accessory muscle use. No retractions. Cardio: Regular rate and rhythm. No murmurs, rubs or gallops. Abd: Soft, non tender, non distended. Normal bowel sounds. No palpable masses. No rebound tenderness. No guarding. Skin: No petechiae or rashes Back: No midline tenderness. No CVA tenderness. Ext: No cyanosis, or edema. Neur: Awake and alert. Psych: Normal Mood and Affect Results 24 hrs Laboratory Tests Test 10/09/18 15:47 10/09/18 15:48 White Blood Count 10.6 10^3/ul Red Blood Count 4.72 10^6/ul Hemoglobin 13.0 g/dl Hematocrit 39.9 % Mean Corpuscular Volume 84.5 fl Mean Corpuscular Hemoglobin 27.5 pg Mean Corpuscular Hemoglobin Concent 32.6 g/dl Red Cell Distribution Width 13.2 % Platelet Count 343 10^3/UL Mean Platelet Volume 9.1 fl Immature Granulocytes % 0.300 % Neutrophils % 80.1 % Lymphocytes % 11.8 % Monocytes % 5.0 % Eosinophils % 2.0 % Basophils % 0.8 % Nucleated Red Blood Cells % 0.0 /100WBC Immature Granulocytes # 0.030 10^3/ul Neutrophils # 8.5 10^3/ul Lymphocytes # 1.3 10^3/ul Monocytes # 0.5 10^3/ul Eosinophils # 0.2 10^3/ul Basophils # 0.1 10^3/ul Nucleated Red Blood Cells # 0.0 10^3/ul Urine Color STRAW Urine Clarity CLEAR Urine pH 6.0 Urine Specific [place] 1.004 Urine Ketones NEGATIVE mg/dL Urine Nitrite NEGATIVE mg/dL Urine Bilirubin NEGATIVE mg/dL Urine Urobilinogen NEGATIVE mg/dL Urine Leukocyte Esterase NEGATIVE Elida/ul Urine Microscopic RBC 2 /HPF Urine Microscopic WBC 0 /HPF Urine Hemoglobin 2+ mg/dL Urine Glucose NEGATIVE mg/dL Urine Total Protein NEGATIVE mg/dl Sodium Level 141 mmol/L Potassium Level 4.0 mmol/L Chloride Level 104 mmol/L Carbon Dioxide Level 24 mmol/L Anion Gap 13 Blood Urea Nitrogen 9 mg/dl Creatinine 0.61 mg/dl Est Glomerular Filtrat Rate mL/min > 60 mL/min Glucose Level 101 mg/dl Calcium Level 9.5 mg/dl Total Bilirubin 0.3 mg/dl Direct Bilirubin 0.00 mg/dl Indirect Bilirubin 0.3 mg/dl Aspartate Amino Transf (AST/SGOT) 25 IU/L Alanine Aminotransferase (ALT/SGPT) 28 IU/L Alkaline Phosphatase 73 IU/L Total Protein 7.8 g/dl Albumin 4.6 g/dl Globulin 3.20 g/dl Albumin/Globulin Ratio 1.43 Lipase 76 U/L Thyroid Stimulating Hormone (TSH) 0.828 MIU/L Free Thyroxine Index 3.43 ug/ml Thyroxine (T4) 10.5 ug/dl Triiodothyronine (T3) Uptake 32.7 % POC Beta HCG, Qualitative NEGATIVE Current Medications Medications Dose Sig/Parmjit Start Time Status Last (Trade) Ordered Route PRN Stop Time Admin Dose Reason Admin Sodium 500 ml @ Q1H ONCE 10/09/18 DC 10/09/18 Chloride 500 mls/hr IV 16:00 15:57 10/09/18 16:59 Procedures/MDM 33-year-old female patient with past medical history of asthma, presents to ED complaining of inability to sleep, urgency to urinate, feeling like her blood sugar was low. Patient is afebrile and nontoxic-appearing. Patient's blood pressure is 142/94. Blood Pressure Assessment: Patient's blood pressure was elevated (>120/80) but appears stable without evidence of hypertension emergency or urgency. The patient was counseled about the risks of hypertension and urged to pursue outpatient monitoring and therapy within a week with their primary care physician. Patient was further worked up with CBC, CMP, lipase, UA, urine . Patient's pain and symptoms have improved after treatment with 1 L normal saline. CBC: No leukocytosis. No e/o of systemic infection. No e/o anemia. CMP: No e/o severe acidosis, alkalosis, renal failure, diabetic ketoacidosis, liver disease Lipase within normal limits. Urine: No leukocyte esterase, no nitrites, no hematuria. Urine : Negative Thyroid Panel within normal limits. Symptoms may be stress related. Low suspicion for ectopic , ovarian torsion, gastritis, GERD, peptic ulcer disease, cholecystitis, choledocholithiasis, cholangitis, pancreatitis, appendicitis, bowel obstruction, ileus, volvulus, nephrolithiasis, pyelonephritis, hepatitis, perforated viscus, diverticulitis, strangulated/incarcerated hernia, DKA, acute abdomen, mesenteric ischemia or other emergent conditions. Diagnosis: Insomnia, Tired, Vomiting Discharge medications: Zofran Follow up with primary care physician in in 8-12 hours for a reexamination of the abdomen. Instructed patient to return to the ED sooner for any worsening symptoms. Patient's questions were answered. Patient is hemodynamically stable. Patient understood and agreed with discharge plan. Patient discharged stable. Disclaimer: Inadvertent spelling and grammatical errors are likely due to EHR/dictation software use and do not reflect on the overall quality of patient care. Also, please note that the electronic time recorded on this note does not necessarily reflect the actual time of the patient encounter. Departure Diagnosis: Primary Impression: Insomnia Insomnia type: unspecified Qualified Codes: G47.00 - Insomnia, unspecified Additional Impressions: Tired Vomiting Vomiting type: unspecified Vomiting Intractability: unspecified Nausea presence: unspecified Qualified Codes: R11.10 - Vomiting, unspecified Condition: Stable Patient Instructions: Treating Insomnia, Insomnia, Vomiting (6Y-Adult) Referrals: [facility] YOU HAVE RECEIVED A MEDICAL SCREENING EXAM AND THE RESULTS INDICATE THAT YOU DO NOT HAVE A CONDITION THAT REQUIRES URGENT TREATMENT IN THE EMERGENCY DEPARTMENT. FURTHER EVALUATION AND TREATMENT OF YOUR CONDITION CAN WAIT UNTIL YOU ARE SEEN IN YOUR DOCTORS OFFICE WITHIN THE NEXT 1-2 DAYS. IT IS YOUR RESPONSIBILITY TO MAKE AN APPOINTMENT FOR FOLOW-UP CARE. IF YOU HAVE A PRIMARY DOCTOR --you should call your primary doctor and schedule an appointment IF YOU DO NOT HAVE A PRIMARY DOCTOR YOU CAN CALL OUR PHYSICIAN REFERRAL HOTLINE AT IF YOU CAN NOT AFFORD TO SEE A PHYSICIAN YOU CAN CHOSE FROM THE FOLLOWING [facility] [address] [facility]. [facility] [address] [facility]. [facility] [address] [facility] [address] [facility]. [facility] [address] [facility]. [facility]. [address] [facility] YOU HAVE RECEIVED A MEDICAL SCREENING EXAM AND THE RESULTS INDICATE THAT YOU DO NOT HAVE A CONDITION THAT REQUIRES URGENT TREATMENT IN THE EMERGENCY DEPARTMENT. FURTHER EVALUATION AND TREATMENT OF YOUR CONDITION CAN WAIT UNTIL YOU ARE SEEN IN YOUR DOCTORS OFFICE WITHIN THE NEXT 1-2 DAYS. IT IS YOUR RESPONSIBILITY TO MAKE AN APPOINTMENT FOR FOLOW-UP CARE. IF YOU HAVE A PRIMARY DOCTOR --you should call your primary doctor and schedule and appointment IF YOU DO NOT HAVE A PRIMARY DOCTOR YOU CAN CALL OUR PHYSICIAN REFERRAL HOTLINE AT . IF YOU CAN NOT AFFORD TO SEE A PHYSICIAN YOU CAN CHOSE FROM THE FOLLOWING [facility] INSTITUTIONS: [facility] [address] [place] [address] [facility] [address] [place] [address] [facility] [address] [place] [address] [facility] Additional Instructions: Call your primary care doctor TOMORROW for an appointment during the next 2-3 days.See the doctor sooner or return here if your condition worsens before your appointment time. MAYA FLORES PA-C Oct 09, 2018 18:22
== END 2018-10-09 17:46 | disposition home or self-care (01) ==
LOC: FTE 14:11
DX: G47.00 Insomnia, unspecified (principal); R11.10 Vomiting, unspecified; J45.909 Unspecified asthma, uncomplicated
CPT/HCPCS: 36415; 80053; 81001; 81025; 83690; 84436; 84443; 84479; 85025; 96360; J7040; Z7502

== ENCOUNTER 2018-12-21 07:36 | Emergency (ER) | payer SELFPAY ==
[~2018-12-21] VITALS: Ht 162.6 cm; Wt 84.5 kg
[~2018-12-21 07:36] MED LIST changes: +ONDA4TAB14 PO
[2018-12-21 07:40] VITALS: BP 111/63; PULSE 86; RESP 18; Ht 162.6 cm; Wt 84.5 kg
--- NOTE | 2018-12-21 10:17 | ERD ---
ER Documentation Chief Complaint Chief Complaint vaginal spotting 7wks today, lmp 11/04/18, HPI 33-year-old female presenting with vaginal bleeding times 2 days. Patient describes as brown blood with no clots. She denies any pelvic pressure. . LNMP November 04. Has been seen by OB and had Pap smear however no ultrasound. Was seen 1 week ago. Medical history is asthma. Allergy to aspirin. Surgical history . Social history denies ROS All systems reviewed and are negative except as per history of present illness. Medications Home Meds Active Scripts Ondansetron (Ondansetron Odt) 4 Mg Tab.rapdis, 4 MG PO Q6H PRN for NAUSEA AND/OR VOMITING, #10 TAB Prov:MAYA FLORES PA-C 10/09/18 Docusate Sodium* (Colace*) 100 Mg Capsule, 100 MG PO TID, #30 CAP Prov:KORIN GARCIA 05/12/18 Acetaminophen* (Tylenol*) 325 Mg Tablet, 2 TAB PO Q4 PRN for PAIN AND OR ELEVATED TEMP, #30 TAB Prov:ROCK MCFARLANE PA-C 01/11/18 Amoxicillin* (Amoxicillin*) 500 Mg Cap, 500 MG PO BID for 10 Days, CAP Prov:ROCK MCFARLANE PA-C 01/11/18 Prednisone* (Prednisone*) 20 Mg Tab, 40 MG PO DAILY for 4 Days, TAB Prov:ROSSY HOFF PA-C 09/11/17 Fluticasone Propionate (Flonase Allergy Relief) 9.9 Ml [place].susp, 2 SPRAY NASAL DAILY, #1 BOTTLE TO EACH NOSTRIL Prov:ROSSY HOFF PA-C 09/11/17 Cetirizine Hcl* (Zyrtec*) 10 Mg Capsule, 10 MG PO DAILY, #14 TAB.CHEW Prov:ROSSY HOFF PA-C 09/11/17 Ibuprofen* (Motrin*) 600 Mg Tab, 600 MG PO Q6, #30 TAB Prov:ROSSY HOFF PA-C 09/11/17 Azithromycin* (Zithromax*) 250 Mg Tablet, 250 MG PO .THUANCK DIRECTED, #6 TAB TAKE 500 MG (2 TABS) THE FIRST DAY THEN 250 MG (1 TAB) DAYS 2-5 Prov:ROSSY HOFF PA-C 09/11/17 Acetaminophen* (Tylenol*) 325 Mg Tablet, 2 TAB PO Q4 PRN for PAIN AND OR ELEVATED TEMP, #20 TAB Prov:ROCK MCFARLANEC 05/16/17 Loratadine* (Claritin*) 10 Mg Tablet, 10 MG PO DAILY, #20 TAB Prov:ROCK MCFARLANEC 05/16/17 Amoxicillin* (Amoxicillin*) 500 Mg Cap, 500 MG PO BID for 10 Days, CAP Prov:ROCK MCFARLANE PA-C 05/16/17 Sulfamethoxazole/Trimethoprim* (Bactrim Ds* Tablet) 1 Each Tablet, 1 TAB PO BID, #10 TAB Prov:ROCK MCFARLANE PA-C 02/19/17 Cephalexin* (Cephalexin*) 500 Mg Capsule, 500 MG PO Q6 for 7 Days, #28 CAP Prov:ELY STAHL S. 02/18/17 Fluticasone Propionate* (Fluticasone Propionate* Nasal) 50 Mcg/[place] - 16 Gm [place].susp, 1 SPRAY NASAL BID, #60 2 Refills Prov:ELY STAHL S. 02/18/17 Hydrocodone/Acetaminophen ([place] 5-325 Tablet) 1 Each Tablet, 1 TAB PO Q6H PRN for PAIN, #7 TAB Prov:CAROLE SANTACRUZ 12/29/16 Ibuprofen* (Motrin*) 600 Mg Tab, 600 MG PO Q6H PRN for PAIN AND OR ELEVATED TEMP, #30 TAB Prov:CAROLE SANTACRUZ 12/29/16 Albuterol Sulfate* (Ventolin HFA*) 18 Gm Hfa.aer.ad, 2 PUFF INHALATION Q6H for WHEEZING, #1 INHALER 0 Refills Prov:ALIDA WILSON PA-C 09/17/15 Prednisolone* (Prelone*) 15 Mg/5 Ml Solution, 5 ML PO DAILY PRN for WHEEZING, #240 BOTTLE 0 Refills Prov:ALIDA WILSON PA-C 09/17/15 Guaifenesin-Dextromethorphan* (Robitussin* DM) 100MG/10MG/5ML Syrup, 10 ML PO Q6H PRN for COUGH, #240 ML 0 Refills Prov:ALIDA WILSON PA-C 09/17/15 Acetaminophen (Tylenol) 500 Mg Tab, 500 MG PO Q6, #30 TAB 0 Refills Prov:ALIDA WILSON PA-C 09/17/15 Hydrocodone Bit-Acetaminophen* (Dietrich*) 5-325 Mg Tab, 1 TAB PO Q4H PRN for PAIN, #15 TAB Prov:PRABHA AUGUSTIN PA-C 09/09/15 Albuterol Sulfate* (Ventolin HFA*) 18 Gm Hfa.aer.ad, 2 PUFF IH Q4H PRN for WHEEZING AND RESP DISTRESS, #1 EA Prov:PRABHA AUGUSTIN PA-C 09/09/15 Allergies Allergies: Coded Allergies: aspirin (Verified Allergy, Unknown, 09/09/15) PMhx/Soc History of Surgery: Yes (,GALL BLADDER REMOVAL ) Anesthesia Reaction: No Hx Neurological Disorder: No Hx Respiratory Disorders: Yes (ASTHMA) Hx Cardiac Disorders: No Hx Psychiatric Problems: No Hx Miscellaneous Medical Probl: No Hx Alcohol Use: No Hx Substance Use: No Hx Tobacco Use: No FmHx Family History: No diabetes, No coronary disease, No other Physical Exam Vitals Vital Signs Date Temp Pulse Resp B/P (MAP) Pulse Ox O2 O2 Flow FiO2 Time Delivery Rate 12/21/18 98.0 86 18 111/63 100 07:40 (79) Physical Exam GENERAL: The patient is well-appearing, well-nourished, in no acute distress HEENT: Atraumatic. Conjunctivae are pink. Pupils equal, round, and reactive to light. There is no scleral icterus. Tympanic membranes clear bilaterally. NECK: C-spine is soft and supple. There is no meningismus. There is no cervical lymphadenopathy. CHEST: Clear to auscultation bilaterally. There are no rales, wheezes or rhonchi. HEART: Regular rate and rhythm. No murmurs, clicks, rubs or gallops. No S3 or S4. ABDOMEN:Soft, nontender and nondistended. Good bowel sounds. No rebound or guarding. No gross peritonitis. No gross organomegaly or masses. Result Diagram: 12/21/18 0821 Results 24 hrs Laboratory Tests Test 12/21/18 08:10 12/21/18 08:21 Urine Color YELLOW Urine Clarity CLOUDY Urine pH 7.0 Urine Specific [place] 1.017 Urine Ketones NEGATIVE mg/dL Urine Nitrite NEGATIVE mg/dL Urine Bilirubin NEGATIVE mg/dL Urine Urobilinogen NEGATIVE mg/dL Urine Leukocyte Esterase NEGATIVE Elida/ul Urine Microscopic RBC 4 /HPF Urine Microscopic WBC 10 /HPF Urine Squamous Epithelial Cells FEW /HPF Urine Bacteria FEW /HPF Urine Mucus FEW /HPF Urine Hemoglobin 2+ mg/dL Urine Glucose NEGATIVE mg/dL Urine Total Protein NEGATIVE mg/dl White Blood Count 7.5 10^3/ul Red Blood Count 4.85 10^6/ul Hemoglobin 13.4 g/dl Hematocrit 41.3 % Mean Corpuscular Volume 85.2 fl Mean Corpuscular Hemoglobin 27.6 pg Mean Corpuscular Hemoglobin Concent 32.4 g/dl Red Cell Distribution Width 13.7 % Platelet Count 356 10^3/UL Mean Platelet Volume 9.2 fl Immature Granulocytes % 0.300 % Neutrophils % 67.7 % Lymphocytes % 21.7 % Monocytes % 5.9 % Eosinophils % 3.3 % Basophils % 1.1 % Nucleated Red Blood Cells % 0.0 /100WBC Immature Granulocytes # 0.020 10^3/ul Neutrophils # 5.1 10^3/ul Lymphocytes # 1.6 10^3/ul Monocytes # 0.4 10^3/ul Eosinophils # 0.3 10^3/ul Basophils # 0.1 10^3/ul Nucleated Red Blood Cells # 0.0 10^3/ul Beta HCG, Quantitative 43323.0 mIU/ml Procedures/MDM DIAGNOSTIC IMAGING REPORT Patient: JAYLA FAJARDO : 1985 Age: 33 Sex: F MR #: [id number] DOS: 12/21/18 0755 Ordering MD: EUN AUGUSTIN PA-C Location: [facility] Room/Bed: PROCEDURE: US OB. CLINICAL INDICATION: Vaginal bleeding TECHNIQUE: Transabdominal views of the pelvis are available for review. COMPARISON: No prior studies are available for comparison. FINDINGS: There is a single intrauterine gestation with the crown-rump length measuring 1.2 cm and the gestational sac measures 2.8 cm, corresponding to a gestational age of 7 weeks and 5 days. The heart rate is noted at 146 bpm. The ovaries are normal in size and echogenicity. Normal Doppler flow is iden tified in both ovaries. The right ovary measures 2.7 x 1.8 x 2.6 cm. There is a hemorrhagic corpus l uteum cyst in the right ovary. The left ovary measures 2.6 x 1.9 x 1.8 cm. There is a small amount of free fluid in the pelvis. RPTAT: AA IMPRESSION: Single live intrauterine with an estimated gestational age of 7 weeks and 5 days, based on ultrasound measurements. JAMILA based on ultrasound measurements is 08/04/19. MDM; 33-year-old female presenting with vaginal spotting. Live noted on ultrasound with stable hemoglobin levels on CBC. No signs of urinary tract infection. Patient is Rh+ and does not require RhoGam injection. I have low suspicion for ectopic . I have low suspicion for miscarriage. Patient is recommended to perform pelvic rest. Patient is told if symptoms change or worsen to return immediately to the ER. All questions answered at discharge Departure Diagnosis: Primary Impression: Vaginal bleeding during Condition: Stable Patient Instructions: Vaginal Bleed in Referrals: RN [place] [address] [facility] [address] [place], [place] [id number] OFF[address]ABUSLEME EDUARDO [address] [place] [place] [id number] [facility] [facility] [address] [place], [place] [id number] SORIANO [facility] [address] [facility], [address] [address] [address] [place], [place] [id number] [facility] [address] [place] [address] [address] [facility] [id number] - [place] [address], [place] [address] [address] BEY, MONA [address] [facility] [address], [place] [address] TORY MARRO[address]IN [address] [place] [address] Additional Instructions: FOLLOW UP WITH YOUR PRIMARY CARE PHYSICIAN TOMORROW.Return to this facility if you are not improving as expected. PRABHA AUGUSTIN PA-C Dec 21, 2018 10:17
== END 2018-12-21 12:42 | disposition home or self-care (01) ==
LOC: FTE 07:36
DX: O20.9 Hemorrhage in early pregnancy, unspecified (principal); O99.511 Diseases of the respiratory system complicating pregnancy, first trimester; J45.909 Unspecified asthma, uncomplicated; R10.2 Pelvic and perineal pain; Z3A.01 Less than 8 weeks gestation of pregnancy
CPT/HCPCS: 36415; 76801; 76817; 81001; 84702; 85025; 86900; 86901